=== PATIENT | female | born 1990 | race Caucasian/White ===

== ENCOUNTER 2023-12-21 13:04 | Inpatient (IN) ==
--- NOTE | 2023-12-21 13:11 | ED Triage Note ---
Date of Service December 21, 2023 Provider in Triage Author: Magaly Jacobsen History of Present Illness This patient was briefly evaluated while in triage. An abbreviated physical exam was performed. 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 Initial orders for labs and / or imaging were placed and patient was placed in the waiting area until a bed is available. Please see further documentation for the full ED course.
--- NOTE | 2023-12-21 14:18 | Ultrasound Report ---
LEFT LOWER EXTREMITY VENOUS DOPPLER HISTORY: Acute pain in the left lower leg LEFT CALF PAIN COMPARISON STUDY: None. FINDINGS: Deep venous thrombosis which is likely acute avulsion one of the duplicated anterior tibial veins. No additional DVT identified. IMPRESSION: Deep venous thrombosis of the anterior tibial vein. ACT 112: Negative or not required by law. Electronically signed by: Sriram Ackerman M.D. 12/21/2023 2:17 PM
--- NOTE | 2023-12-21 15:01 | Emergency Department Note ---
ED Provider Note History of Present Illness Chief Complaint: Calf Pain Stated Complaint: HX OF BLOODCLOT, BRUISED FEELING IN L CALF Time Seen by Provider: 12/21/23 13:19 This is a 33-year-old female who presents to the emergency department with pain in her left lower leg. She is concerned about a possible blood clot. The pain is located in the front of the lower leg. It initially began on her foot and is now traveling up the leg. It started 3 to 4 days ago and has progressively gotten worse. 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 After the surgery she developed a clot in her lung and was treated with blood thinners. She was taken off those blood thinners and has not had a DVT or PE since then. No other known personal or family history of bleeding or clotting disorders. She is not on any control. She just started her menstrual period so denies any chance of . She has traveled to and from [place] recently but otherwise no long car trips or plane trips. No recent injuries. She denies any new numbness or tingling in her toes. She believes that her ankle is slightly swollen, otherwise denies any obvious swelling in her leg. She has not had any fevers or chills, chest pain, shortness of breath, lightheadedness or weakness. 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 12/21/23 12/21/23 History Thyroid) topiramate 25 mg tablet 25 mg PO QAM 12/21/23 12/21/23 History Allergies Allergy/AdvReac Type Severity Reaction Status Date / Time No Known Allergies Allergy Unverified 12/21/23 16:18 Past Med/Surg History Problem List (Updated 12/21/23 @ 18:56 by Timbo Diaz MD) Hypothyroidism Obesity Acute DVT of left tibial vein Acute pulmonary embolism Social History Smoking Status: Current every day smoker Tobacco Type: Cigarettes Preferred Language: Estonian Feels Safe at Home: Yes Physical Exam Vital Signs Vital Signs - 24 hr 12/21/23 13:09 12/21/23 14:35 12/21/23 16:10 Temperature 97.7 F Temperature Source Temporal Artery Scan Pulse Rate 102 H 76 Pulse Rate [Right Finger] 86 Pulse Rhythm [Right Finger] Regular Pulse Strength [Right Finger] Normal Respiratory Rate 20 18 Respiratory Effort / Characteristics Non-Labored Non-Labored Respiratory Depth Normal Normal Respiratory Pattern Regular Blood Pressure 148/96 H Blood Pressure [Right Arm] 120/88 Blood Pressure Mean 113 Blood Pressure Mean [Right Arm] 98 Blood Pressure Position [Right Arm] Sitting Pulse Oximetry 99 97 Oxygen Delivery Method Room Air Room Air Sepsis Recent Fever Within 48 Hours No Sepsis New/Unexplained Change in Mental Status N/A Sepsis Action Taken by Nursing No Action Required 12/21/23 16:12 12/21/23 18:00 Temperature Temperature Source Pulse Rate Pulse Rate [Right Finger] 78 75 Pulse Rhythm [Right Finger] Regular Regular Pulse Strength [Right Finger] Normal Normal Respiratory Rate 18 20 Respiratory Effort / Characteristics Non-Labored Spontaneous Non-Labored Spontaneous Respiratory Depth Normal Normal Respiratory Pattern Regular Regular Blood Pressure Blood Pressure [Right Arm] 127/69 122/75 Blood Pressure Mean Blood Pressure Mean [Right Arm] 88 90 Blood Pressure Position [Right Arm] Sitting Sitting Pulse Oximetry 100 100 Oxygen Delivery Method Room Air Room Air Sepsis Recent Fever Within 48 Hours Sepsis New/Unexplained Change in Mental Status Sepsis Action Taken by Nursing CONSTITUTIONAL: Well developed, well nourished, in no acute distress. EYES: conjunctivae normal, extraocular muscles intact. NECK: Full active range of motion. RESPIRATORY: Breathing unlabored and symmetric. Lungs clear to auscultation bilaterally. No wheeze, rales, or rhonchi. CARDIOVASCULAR: Regular rate and rhythm. No murmurs, rubs, or gallops. DP pulses 2+ bilaterally. ABDOMEN: Normal bowel sounds. Soft, nontender, no peritonitis. No masses. MUSCULOSKELETAL: Left lower extremity: Possibly some slight swelling compared to contralateral. No skin color changes. No palpable cords. No focal tenderness is appreciated. SKIN: [place], warm, dry. NEUROLOGIC: Awake, alert, oriented. Gaze is conjugate. Face symmetric, speech normal. Moves head and all four extremities spontaneously. Sensation and strength grossly intact. [Ambulates into room] PSYCHIATRIC: Appropriate. Normal affect Course Administered Medications Heparin Sodium/Dextrose (Heparin Sodium/Dextrose) 25,000 units in 500 mls @ 29 mls/hr IV .[id number] [facility]; Protocol Stop: 01/20/24 18:14 Last Admin: 12/21/23 18:26 Dose: 1,450 units/hr, 29 mls/hr Documented By: GLORIA Co-signed By: ANJUM Discontinued Medications Heparin Sodium (Porcine) (Heparin Sod (Porcine) 1000 Unit/Ml) 6,000 units IV NOW ONE Stop: 12/21/23 18:16 Last Admin: 12/21/23 18:26 Dose: 6,000 units Documented By: GLORIA Co-signed By: ANJUM Heparin Sodium/Dextrose (Heparin Iv Adult Wt-Based Standard W/ Initial Bolus Protocol) 1 each IV NOW STA; Protocol Stop: 12/21/23 17:53 Last Admin: 12/21/23 18:47 Dose: Not Given Documented By: GLORIA Ioversol (Optiray 320 125ml) 118 ml IV ONCE ONE Stop: 12/21/23 15:59 Last Admin: 12/21/23 15:58 Dose: 118 ml Documented By: HAYDE Medical Decision Making Differential Diagnosis DVT, superficial venous thrombosis, cellulitis, strain, sprain, Dubose's cyst, aneurysm, AV malformation, PE, among other pathology. Laboratory Data 12/21/23 14:53 12/21/23 14:53 Lab Results 12/21/23 Range/Units 14:53 WBC 12.84 H (4.8-10.8) K/ul RBC 5.54 H (4.20-5.40) M/uL Hgb 10.6 L (12.0-16.0) g/dl Hct 33.9 L (37.0-47.0) % MCV 61.2 L (80.0-100.0) fL MCH 19.1 L (25.0-34.0) pg MCHC 31.3 L (32.0-36.0) g/dL RDW Std Deviation 33.1 L (36.4-46.3) fL RDW Coeff of Eugenie 15.7 H (11.5-14.5) % Plt Count 379 (130-400) K/uL MPV 10.2 (9.4-12.4) fL Immature Gran % (Auto) 0.5 % Neut % (Auto) 71.6 % Lymph % (Auto) 20.9 % [place] % (Auto) 5.3 % Eos % (Auto) 1.2 % Baso % (Auto) 0.5 % Neut # (Auto) 9.21 H (1.40-6.50) K/uL Lymph # (Auto) 2.68 (1.20-3.40) K/uL [place] # (Auto) 0.68 H (0.11-0.59) K/uL Eos # (Auto) 0.15 (0.00-0.50) K/uL Baso # (Auto) 0.06 (0.00-0.20) K/uL Immature Gran # (Auto) 0.06 (0.01-0.20) K/uL Polychromasia 1+ Hypochromasia Present Microcytosis Present Ovalocytes 1+ Sodium 139 (136-145) mmol/L Potassium 3.8 (3.5-5.1) mmol/L Chloride 109 H (98-107) mmol/L Carbon Dioxide 24 (21-32) mmol/L Anion Gap 6 (3-11) BUN 13 (6-23) mg/dl Creatinine 0.63 (0.6-1.2) mg/dl Est Cr Clr Drug Dosing 160.0 ml/min Est GFR ( Amer) 134.7 ml/min Est GFR (Non-Af Amer) 116.2 ml/min BUN/Creatinine Ratio 20.6 H (10-20) Glucose 81 (70-99(Fasting)) mg/dl Calcium 9.2 (8.6-10.3) mg/dl Total Bilirubin 0.6 (0.2-1.0) mg/dl AST 13 (13-39) U/L ALT 16 (7-52) U/L Alkaline Phosphatase 54 (34-104) U/L Troponin I High Sens < 2.3 (0-14) pg/ml Total Protein 7.2 (6.0-8.3) gm/dl Albumin 4.3 (3.4-5.0) gm/dl Globulin 2.9 (2.5-4.0) gm/dl Albumin/Globulin Ratio 1.5 (0.9-2) Imaging Data Radiologist's Impression: Venous Doppler Study 12/21/23 13:11 LEFT LOWER EXTREMITY VENOUS DOPPLER HISTORY: Acute pain in the left lower leg LEFT CALF PAIN COMPARISON STUDY: None. FINDINGS: Deep venous thrombosis which is likely acute avulsion one of the duplicated anterior tibial veins. No additional DVT identified. IMPRESSION: Deep venous thrombosis of the anterior tibial vein. ACT 112: Negative or not required by law. Electronically signed by: Sriram Ackerman M.D. 12/21/2023 2:17 PM Chest CTA 12/21/23 15:01 CHEST CTA for PULMONARY ARTERIES CT DOSE: 889.82 mGy.cm HISTORY: Left lower extremity DVT. Assess for a pulmonary embolus. TECHNIQUE: Multiaxial CT images of the chest were performed following the intravenous administration of contrast to evaluate the pulmonary arteries. 3D/Maximal intensity projection images were also obtained. Sagittal and coronal reformations were also reviewed. A dose lowering technique was utilized adhering to the principles of ALARA. COMPARISON STUDY: None. FINDINGS: Normal caliber thoracic aorta with no evidence for a dissection. The heart is normal in size. No pleural or pericardial effusions. Filling defect seen within the distal right main pulmonary artery and extending into the right upper lobe segmental/subsegmental pulmonary arteries. There a few tiny filling defects seen within the right lower lobe subsegmental pulmonary arteries. Findings are consistent with acute pulmonary emboli. No evidence for right-sided heart strain. No acute fractures identified. Limited views of the upper abdomen demonstrate normal liver, spleen, and adrenal glands. Normal thyroid gland. Normal esophagus. No mediastinal or hilar lymphadenopathy. No pneumothorax. Small amount of mucoid material within the right mainstem bronchus. Otherwise, the remaining central airways are patent. Mild dependent changes seen within the lungs posteriorly. No focal lung consolidations to suggest a pneumonia or pulmonary infarct. No evidence for pulmonary edema. IMPRESSION: 1. Acute right-sided pulmonary emboli as described above. 2. No evidence for right-sided heart strain. ACT 112: Negative or not required by law. Electronically signed by: Alexis Ibrahim M.D. 12/21/2023 5:06 PM MDM Narrative This is a 33-year-old female who presents to the emergency department with 3 to 4 days of progressive pain in her left lower leg that initially started in the foot and has progressed superiorly. She has a history of surgery removing some sort of tumor about 20 years ago and developed a PE following that surgery. Otherwise has not been on any blood thinners and has not had any recurrent DVT or PE. See above for further details. Patient initially tachycardic though this normalized on reevaluation. Patient was initially seen in triage and an ultrasound had been ordered. I evaluated her when she returned and her exam is relatively unremarkable, possibly some mild swelling in the lower leg but nothing significant and no reproducible tenderness, neurovascularly intact. Ultrasound of the left lower extremity is positive for a deep venous thrombosis of the anterior tibial vein, which coincides with her pain distribution. IV was inserted and labs were obtained including anticoagulation panel which will be for outpatient follow-up purposes. EKG: Obtained at 1427. Sinus rhythm with a rate of 81. Intervals within normal limits. No acute ST elevation. No evidence of ischemia. Labs: Anemia with a hemoglobin of 10.6. Leukocytosis at 12.84. No thrombocytopenia or thrombocytosis. She does have some abnormalities identified on her smear. Electrolytes are normal. Renal function normal. No transaminitis. Troponin normal. Given patient's history of pulmonary embolism, I discussed evaluating this with her at the bedside. We decided to proceed with a CT of the chest. This demonstrates filling defects in the right main pulmonary artery extending into the right upper lobe segmental and subsegmental pulmonary arteries as well as several tiny filling defects in the right lower lobe subsegmental pulmonary arteries. Case discussed with the attending Dr. Dominguez. We decided to review the case with Dr. Diaz (hospitalist) who agrees admission is warranted. He requests heparin standard dose with bolus and he will admit the patient. Patient comfortable with this plan. 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
[2023-12-21 15:20] LABS: Basophils # (auto) 0.06 K/uL (0.00-0.20); Basophils % (auto) 0.5 %; Eosinophils # (auto) 0.15 K/uL (0.00-0.50); Eosinophils % (auto) 1.2 %; Hematocrit (blood only) 33.9 % (37.0-47.0); Hemoglobin 10.6 g/dl (12.0-16.0); Immature Granulocytes # (auto) 0.06 K/uL (0.01-0.20); Immature Granulocytes % (auto) 0.5 %; Lymphocytes # (auto) 2.68 K/uL (1.20-3.40); Lymphocytes % (auto) 20.9 %; Mean Corpuscular Hemoglobin 19.1 pg (25.0-34.0); Mean Corpuscular Hgb Conc 31.3 g/dL (32.0-36.0); Mean Corpuscular Volume 61.2 fL (80.0-100.0); Monocytes # (auto) 0.68 K/uL (0.11-0.59); Monocytes % (auto) 5.3 %; Neutrophils # (auto) 9.21 K/uL (1.40-6.50); Neutrophils % (auto) 71.6 %; RDW Coefficient of Variation 15.7 % (11.5-14.5); RDW Standard Deviation 33.1 fL (36.4-46.3); Red Blood Count 5.54 M/uL (4.20-5.40); White Blood Count 12.84 K/ul (4.8-10.8)
[2023-12-21 15:35] LABS: Alanine Aminotransferase 16 U/L (7-52); Albumin Globulin Ratio 1.5 (0.9-2); Albumin Level 4.3 gm/dl (3.4-5.0); Alkaline Phosphatase 54 U/L (34-104); Anion Gap 6 (3-11); Aspartate Aminotransferase 13 U/L (13-39); BUN Creatinine Ratio 20.6 (10-20); Bilirubin,Total 0.6 mg/dl (0.2-1.0); Blood Urea Nitrogen 13 mg/dl (6-23); Calcium 9.2 mg/dl (8.6-10.3); Carbon Dioxide 24 mmol/L (21-32); Chloride 109 mmol/L (98-107); Est GFR (African American) 134.7 ml/min; Est GFR (Non-African American) 116.2 ml/min; Globulin 2.9 gm/dl (2.5-4.0); Glucose 81 mg/dl (70-99(Fasting)); Potassium 3.8 mmol/L (3.5-5.1); Sodium 139 mmol/L (136-145); Total Protein 7.2 gm/dl (6.0-8.3)
[2023-12-21 15:36] LABS: Mean Platelet Volume 10.2 fL (9.4-12.4); Platelet Count 379 K/uL (130-400)
[2023-12-21 15:41] LABS: Troponin I High Sensitivity < 2.3 pg/ml (0-14)
[2023-12-21] MEDS: OPTIRAY 320 125ml IV ONE (15:58)
[2023-12-21 16:13] LABS: Hypochromasia Present; Microcytosis Present; Ovalocytes 1+; Polychromasia 1+
--- NOTE | 2023-12-21 17:08 | CT Scan Report ---
CHEST CTA for PULMONARY ARTERIES CT DOSE: 889.82 mGy.cm HISTORY: Left lower extremity DVT. Assess for a pulmonary embolus. TECHNIQUE: Multiaxial CT images of the chest were performed following the intravenous administration of contrast to evaluate the pulmonary arteries. 3D/Maximal intensity projection images were also obta ined. Sagittal and coronal reformations were also reviewed. A dose lowering technique was utilized a dhering to the principles of ALARA. COMPARISON STUDY: None. FINDINGS: Normal caliber thoracic aorta with no evidence for a dissection. The heart is normal in siz e. No pleural or pericardial effusions. Filling defect seen within the distal right main pulmonary ar alisha and extending into the right upper lobe segmental/subsegmental pulmonary arteries. There a few t iny filling defects seen within the right lower lobe subsegmental pulmonary arteries. Findings are co nsistent with acute pulmonary emboli. No evidence for right-sided heart strain. No acute fractures id entified. Limited views of the upper abdomen demonstrate normal liver, spleen, and adrenal glands. No rmal thyroid gland. Normal esophagus. No mediastinal or hilar lymphadenopathy. No pneumothorax. Small amount of mucoid material within the right mainstem bronchus. Otherwise, the remaining central airwa ys are patent. Mild dependent changes seen within the lungs posteriorly. No focal lung consolidations to suggest a pneumonia or pulmonary infarct. No evidence for pulmonary edema. IMPRESSION: 1. Acute right-sided pulmonary emboli as described above. 2. No evidence for right-sided heart strain. ACT 112: Negative or not required by law. Electronically signed by: Alexis Ibrahim M.D. 12/21/2023 5:06 PM
[2023-12-21] MEDS ORDERED: HEPARIN SOD (PORCINE) 1000 UNIT/ML IV ONE (18:10)
[2023-12-21] MEDS: HEPARIN SODIUM/DEXTROSE 25,000 UNITS/500 ML BAG IV SCH (18:26)
[2023-12-21] MEDS: HEPARIN SOD (PORCINE) 1000 UNIT/ML IV ONE (18:26)
[2023-12-21] MEDS: Heparin IV Adult Wt-Based Standard w/ INITIAL Bolus Protocol IV STA (18:47)
--- NOTE | 2023-12-21 18:57 | History & Physical Report ---
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 A tiny filling defect seen within the right lower lobe segmental artery as well Ultrasound did show right anterior tibial vein thrombosis Started with intravenous heparin standard dose with bolus Hypercoagulable workup has been sent Will get echo to evaluate any right heart strain She prefers to have DOAC on discharge if her weight allows otherwise Coumadin as before She does not have a PCP (2) Acute DVT of left tibial vein: Plan: As above (3) Obesity: Plan: Has been on phentermine (4) Hypothyroidism: Plan: Continue thyroid 30 mg Will check TSH Plan DVT prophylaxis On IV heparin CODE STATUS Full History of Present Illness Chief Complaint: Left leg pain for the last 4 days Primary Care Provider: NO PCP She is a 33-year-old obese female without significant past medical history except remote 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 She has been complaining of left lower leg pain that went up to left upper calf for the last 4 days. This happened to be at the site where she did have the vascular mass removed from the leg and she is worried about having a clot. She has been ambulant otherwise and denies any chest pain, cough, palpitation or shortness of breath with exertion. She denies any fever and or chills, any cough or hemoptysis or any chest pain with deep breathing. She was started with intravenous heparin and was admitted to [facility] telemetry unit for continuation of care. She is likely to need Coumadin as oral anticoagulation given her BMI which may limit the use of DOAC's. 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 12/21/23 12/21/23 History Thyroid) topiramate 25 mg tablet 25 mg PO QAM 12/21/23 12/21/23 History Past Med/Surg History Problem List (Updated 12/21/23 @ 18:56 by Timbo Diaz MD) Hypothyroidism Obesity Acute DVT of left tibial vein Acute pulmonary embolism Social History Smoking Status: Current every day smoker Tobacco Type: Cigarettes Preferred Language: Spanish Feels Safe at Home: Yes Review of Systems Review of Systems: All systems reviewed and are unremarkable except as noted below Physical Exam Physical Exam: Lying in bed without any apparent distress Constitutional: well developed, well nourished and + obese; not ill appearing Eyes: PERRL, conjunctivae normal, anicteric sclerae ENMT: external ear and nose normal, oropharynx normal Neck: trachea midline, no thyromegaly Respiratory: no respiratory distress Auscultation: lungs clear to auscultation bilaterally Cardiovascular: Rate/Rhythm: regular rate and regular rhythm; not tachycardic Heart Sounds: normal S1 and normal S2; no murmur Extremities: + edema (Trace edema bilaterally) Gastrointestinal (Abdomen): Inspection/Auscultation: normal bowel sounds; abdomen not distended Percussion/Palpation: abdomen soft; abdomen nontender Musculoskeletal: No acute arthritis involving any joint. Upper part of the left calf is slightly swollen but nontender Neurologic: normal touch/pain/proprioception and moves all extremities; no focal motor deficits Psychiatric: A+Ox3, euthymic affect Lymphatic: no cervical or axillary lymphadenopathy Results & Data Results & Data Vital Signs (Past 12 Hours) Vital Signs Temp Pulse Pulse Resp BP BP Pulse Ox 12/21/23 18:00 75 20 122/75 100 12/21/23 16:12 78 18 127/69 100 12/21/23 16:10 76 12/21/23 14:35 86 18 120/88 97 12/21/23 13:09 36.5 C 102 H 20 148/96 H 99 O2 Del Method 12/21/23 18:00 Room Air 12/21/23 16:12 Room Air 12/21/23 16:10 12/21/23 14:35 Room Air 12/21/23 13:09 Room Air Laboratory Results Short CBC 12/21/23 Range/Units 14:53 WBC 12.84 H (4.8-10.8) K/ul Hgb 10.6 L (12.0-16.0) g/dl Hct 33.9 L (37.0-47.0) % Plt Count 379 (130-400) K/uL BMP 12/21/23 14:53 Sodium 139 Potassium 3.8 Chloride 109 H Carbon Dioxide 24 BUN 13 Creatinine 0.63 Glucose 81 Calcium 9.2 Liver Function 12/21/23 Range/Units 14:53 Total Bilirubin 0.6 (0.2-1.0) mg/dl AST 13 (13-39) U/L ALT 16 (7-52) U/L Alkaline Phosphatase 54 (34-104) U/L Albumin 4.3 (3.4-5.0) gm/dl Medications Administered Current Inpatient Medications Heparin Sodium/Dextrose (Heparin Sodium/Dextrose) 25,000 units in 500 mls @ 29 mls/hr IV .[id number] [facility]; Protocol Stop: 01/20/24 18:14 Last Admin: 12/21/23 18:26 Dose: 1,450 units/hr, 29 mls/hr
[2023-12-21 19:30] LABS: Partial Thromboplastin Time 26 Seconds (21-31); Prothrombin Time 10.8 Seconds (9.0-12.0)
--- NOTE | 2023-12-21 20:19 | Communication Note ---
Date of Service: December 21, 2023 Asked by the nurse that she wants to go home right now. The patient was seen-complaining that she is having pain at the IV site on the right side and also she is very hungry and did not give any food or drink since she has been even in the emergency room. She complains some pain in the calf and also in the right forearm. She was reassured and given a small dose of intravenous She will have her food right away She wants to go home tomorrow-appropriate outpatient follow-up is to be made before discharge as she does not have any PCP. Dr Trav Diaz
[2023-12-21] MEDS: MoRPHine SULFATE 4 MG/ML 1 ML CARP\\VIAL IV STA (20:55)
[2023-12-22] MEDS: NICOTINE 21 MG/24 HR TDSY TD SCH (00:23)
[2023-12-22 01:26] LABS: ANTI-Xa, UFH(UnfractionatedHep 0.49 IU/ml (0.3-0.7)
[2023-12-22 06:48] LABS: Basophils # (auto) 0.05 K/uL (0.00-0.20); Basophils % (auto) 0.5 %; Hematocrit (blood only) 33.3 % (37.0-47.0); Hemoglobin 10.5 g/dl (12.0-16.0); Immature Granulocytes # (auto) 0.03 K/uL (0.01-0.20); Immature Granulocytes % (auto) 0.3 %; Lymphocytes # (auto) 3.15 K/uL (1.20-3.40); Lymphocytes % (auto) 32.2 %; Mean Corpuscular Hemoglobin 19.3 pg (25.0-34.0); Mean Corpuscular Hgb Conc 31.5 g/dL (32.0-36.0); Mean Corpuscular Volume 61.3 fL (80.0-100.0); Monocytes # (auto) 0.59 K/uL (0.11-0.59); Neutrophils # (auto) 5.77 K/uL (1.40-6.50); RDW Coefficient of Variation 15.6 % (11.5-14.5); RDW Standard Deviation 32.9 fL (36.4-46.3); Red Blood Count 5.43 M/uL (4.20-5.40); White Blood Count 9.79 K/ul (4.8-10.8)
[2023-12-22 07:12] LABS: BUN Creatinine Ratio 23.7 (10-20); Calcium 8.9 mg/dl (8.6-10.3); Creatinine Clr Calc Pharmacy 163.7 ml/min; Est GFR (African American) 137.6 ml/min; Est GFR (Non-African American) 118.7 ml/min; Potassium 3.7 mmol/L (3.5-5.1)
[2023-12-22 07:14] LABS: Mean Platelet Volume 9.8 fL (9.4-12.4); Platelet Count 298 K/uL (130-400)
[2023-12-22 07:16] LABS: ANTI-Xa, UFH(UnfractionatedHep 0.43 IU/ml (0.3-0.7)
[2023-12-22 07:27] LABS: Thyroid Stimulating Hormone 2.934 uIu/ml (0.300-4.500)
[2023-12-22 07:36] LABS: Hypochromasia Present; Microcytosis Present; Polychromasia 1+
[2023-12-22 07:40] VITALS: O2SAT 98
[2023-12-22] MEDS: TOPIRAMATE 25 MG TAB PO SCH (08:57)
[2023-12-22] MEDS: MULTIVITAMIN TAB PO SCH (08:57)
[2023-12-22] MEDS ORDERED: NON-FORMULARY MEDICATION (Amino Acids Capsule) PO SCH (09:00)
--- NOTE | 2023-12-22 09:09 | Discharge Summary ---
Discharge Summary Date of Service December 22, 2023 Principal Dx & Hospital Course #1 = Principal Diagnosis (1) Acute pulmonary embolism: (2) Acute DVT of left tibial vein: (3) Obesity: (4) Hypothyroidism: Plan Pt is a 33-year-old obese female with PMHx significant for remote history of pulmonary embolism following a vascular tumor, hypothyroidism and obesity who wa admitted with DVT and PE. Acute DVT Pulmonary Embolus Left calf pain and erythema Left venous doppler noting DVT of anterior tibial vein CTA chest noting right sided pulmonary emboli and no evidence of right heart strain Echo with EF 60-65%, normal LV motion and size, no pulmonary HTN, normal central venous pressure. Hypercoagulable workup ordered by ED- pending -antithrombin III, beta 2 glycoprotein immunoglobulins, cardiolipin, p rothrombin, Factor V lieden, Homocysteine, Lupus anticoagulant, Protein C and Protein S all pending on discharge -pcp followup Was placed on IV heparin Transitioned to po Eliquis on discharge as was $75, pt given coupon. No weight restrictions per recent studies. Close PCP followup after discharge. Anemia, microcytic hemoglobin of 10 MCV of 61 Iron studies within low normal limits Continue with po iron supplementation Continue other home meds as prescribed. 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 She has been complaining of left lower leg pain that went up to left upper calf for the last 4 days. This happened to be at the site where she did have the vascular mass removed from the leg and she is worried about having a clot. She has been ambulant otherwise and denies any chest pain, cough, palpitation or shortness of breath with exertion. She denies any fever and or chills, any cough or hemoptysis or any chest pain with deep breathing. She was started with intravenous heparin and was admitted to [facility] telemetry unit for continuation of care. She is likely to need Coumadin as oral anticoagulation given her BMI which may limit the use of DOAC's. Admission Exam Per Admitting Provider Physical Exam: Lying in bed without any apparent distress Constitutional: well developed, well nourished and + obese; not ill appearing Eyes: PERRL, conjunctivae normal, anicteric sclerae ENMT: external ear and nose normal, oropharynx normal Neck: trachea midline, no thyromegaly Respiratory: no respiratory distress Auscultation: lungs clear to auscultation bilaterally Cardiovascular: Rate/Rhythm: regular rate and regular rhythm; not tachycardic Heart Sounds: normal S1 and normal S2; no murmur Extremities: + edema (Trace edema bilaterally) Gastrointestinal (Abdomen): Inspection/Auscultation: normal bowel sounds; abdomen not distended Percussion/Palpation: abdomen soft; abdomen nontender Musculoskeletal: No acute arthritis involving any joint. Upper part of the left calf is slightly swollen but nontender Neurologic: normal touch/pain/proprioception and moves all extremities; no focal motor deficits Psychiatric: A+Ox3, euthymic affect Lymphatic: no cervical or axillary lymphadenopathy Discharge Exam General: Alert, oriented. No acute distress Skin: No noted rashes or bruises Psych: Appropriate mood and affect Neuro: No gross deficits HEENT: NC/AT CV: RRR, Normal s1, s2. No murmurs appreciated Resp: Breath sounds clear bilaterally, no increased effort of breathing. Abdomen: Soft, nontender, nondistended. Extremities: No edema in lower extremities bilaterally. Calf nontender to palpation bilaterally. Homans sign negative bilaterally. Updated Medication List Medication Instructions Recorded Confirmed Type amino acids 2 cap PO QAM 12/21/23 12/21/23 History multivitamin 1 tab PO QAM 12/21/23 12/21/23 History phentermine 37.5 mg tablet 37.5 mg PO QAM 12/21/23 12/21/23 History thyroid (pork) 30 mg tablet ([employer] 30 mg PO QAM 12/21/23 12/21/23 History Thyroid) topiramate 25 mg tablet 25 mg PO QAM 12/21/23 12/21/23 History apixaban 5 mg (74 tabs) tablets in See Rx Instructions .Route 12/22/23 Rx a dose pack ([employer]) .COMPLEX #74 ea ferrous sulfate 325 mg (65 mg 325 mg PO DAILY #30 tabs 12/22/23 Rx iron) tablet Hospital Stay Data Consultations 12/21/23 18:01 ED Decision to Admit Stat Diagnostic Imagining Performed 12/21/23 13:11 US venous doppler LE LT Stat 12/21/23 15:01 CT angio chest PE protocol Stat Venous Doppler Study 12/21/23 13:11 LEFT LOWER EXTREMITY VENOUS DOPPLER HISTORY: Acute pain in the left lower leg LEFT CALF PAIN COMPARISON STUDY: None. FINDINGS: Deep venous thrombosis which is likely acute avulsion one of the duplicated anterior tibial veins. No additional DVT identified. IMPRESSION: Deep venous thrombosis of the anterior tibial vein. ACT 112: Negative or not required by law. Electronically signed by: Sriram Ackerman M.D. 12/21/2023 2:17 PM Chest CTA 12/21/23 15:01 CHEST CTA for PULMONARY ARTERIES CT DOSE: 889.82 mGy.cm HISTORY: Left lower extremity DVT. Assess for a pulmonary embolus. TECHNIQUE: Multiaxial CT images of the chest were performed following the intravenous administration of contrast to evaluate the pulmonary arteries. 3D/Maximal intensity projection images were also obtained. Sagittal and coronal reformations were also reviewed. A dose lowering technique was utilized adhering to the principles of ALARA. COMPARISON STUDY: None. FINDINGS: Normal caliber thoracic aorta with no evidence for a dissection. The heart is normal in size. No pleural or pericardial effusions. Filling defect seen within the distal right main pulmonary artery and extending into the right upper lobe segmental/subsegmental pulmonary arteries. There a few tiny filling defects seen within the right lower lobe subsegmental pulmonary arteries. Findings are consistent with acute pulmonary emboli. No evidence for right-sided heart strain. No acute fractures identified. Limited views of the upper abdomen demonstrate normal liver, spleen, and adrenal glands. Normal thyroid gland. Normal esophagus. No mediastinal or hilar lymphadenopathy. No pneumothorax. Small amount of mucoid material within the right mainstem bronchus. Otherwise, the remaining central airways are patent. Mild dependent changes seen within the lungs posteriorly. No focal lung consolidations to suggest a pneumonia or pulmonary infarct. No evidence for pulmonary edema. IMPRESSION: 1. Acute right-sided pulmonary emboli as described above. 2. No evidence for right-sided heart strain. ACT 112: Negative or not required by law. Electronically signed by: Alexis Ibrahim M.D. 12/21/2023 5:06 PM Discharge Instructions Given to Patient (Per Discharging Provider) Bety, You were admitted with blood clots. We are discharging you home with the medication Eliquis to take to help keep your blood thin to help with that. Please keep close followup with your primary care provider we set you up with for additional refills. It is very important that you stay on this medication until you are told not to by a provider. We also discharged you home with oral iron supplements for your iron deficiency anemia. Please followup with your pcp about the heavy periods to see if there is anything that can be done to help. Again, please keep close follow up with your primary care provider after discharge. Please do not hesitate to come back to the emergency room if your symptoms worsen or return. It was a pleasure taking care of you while you were here. Total Time Total Time Spent Total Time Spent (In Minutes): 65
[2023-12-22 09:47] LABS: Ferritin 60.9 ng/ml (8-388)
[2023-12-22] MEDS: ARMOUR THYROID 30 MG TAB PO SCH (10:20)
[2023-12-22 11:10] VITALS: BP 124/86; RESP 16; TEMP 98.1
[2023-12-22] MEDS ORDERED: ACETAMINOPHEN 325 MG TAB PO PRN (11:16)
[2023-12-22] MEDS: ACETAMINOPHEN 325 MG TAB ONE (11:28)
--- NOTE | 2023-12-22 12:43 | Electrocardiogram Report ---
Test Reason : Blood Pressure : / mmHG Vent. Rate : 081 BPM Atrial Rate : 081 BPM P-R Int : 144 ms QRS Dur : 086 ms QT Int : 380 ms P-R-T Axes : 043 008 024 degrees QTc Int : 441 ms Normal sinus rhythm Normal ECG No previous ECGs available Confirmed by Brayan Norton ([id number]) on 12/22/2023 12:43:37 PM Referred By: REFERRED SELF Confirmed By:Jeremy Norton
[2023-12-22 14:21] VITALS: PULSE 82
[2023-12-22] MEDS: APIXABAN 5 MG TABLET PO ONE (14:50)
== END 2023-12-22 13:12 | disposition home or self-care (01) | DRG 299 ==
LOC: ED 13:04 → 2N 19:00 → SUATTDRO 19:00 → 2N 20:27